=== PATIENT | female | born 1950 | race Caucasian/White ===

== ENCOUNTER → 2019-06-21 09:31 | Outpatient (BNVA) | payer MEDICARE, MEDICAID, SELFPAY | PROVIDERS: Visit Provider Nurse Practitioner Family | DX: E11.8 Type 2 diabetes mellitus with unspecified complications (principal) | CPT/HCPCS: 80053; 80061; 83036; 85025 ==

== ENCOUNTER → 2019-06-22 08:45 | Outpatient (BNVA) | payer MEDICARE, MEDICAID, SELFPAY | PROVIDERS: Visit Provider Nurse Practitioner Family | DX: E11.8 Type 2 diabetes mellitus with unspecified complications (principal); E83.52 Hypercalcemia | CPT/HCPCS: 82306; 82310; 83970 ==

== ENCOUNTER → 2019-07-25 13:17 | Outpatient (BNVA) | payer MEDICARE, MEDICAID, SELFPAY | PROVIDERS: PCP Nurse Practitioner Family; Visit Provider Nurse Practitioner Family | DX: E83.52 Hypercalcemia (principal) | CPT/HCPCS: 82340 ==

== ENCOUNTER 2019-10-03 14:01 | Outpatient (CLI) | payer MEDICARE, MEDICAID, SELFPAY ==
--- NOTE | 2019-10-03 14:15 | XR_ITS ---
WS: [id number] SCREENING DEXA SCAN [employer] CLINICAL INFORMATION: elevated serum calcium COMPARISON: 5 14,018. FINDINGS: Lumbar scoliosis. The L1-L4 bone mineral density measures 1.269 g/cm2. This corresponds to a T score score of 0.7 and Z score of 1.6. Left femoral neck bone mineral density measures 0.812 g/cm2. This corresponds to a T score of -1.6 an d Z score of -0.7. Right femoral neck bone mineral density measures 0.795 g/cm2. This corresponds to a T score -1.7of an d Z score of -0.8. Mean femoral neck bone mineral density measures 0.804 g/cm2. This corresponds to a T score of -1.6 an d Z score of -0.8. XR/XR DEXA axial skeleton* [id number] IMPRESSION: Osteopenia Patient's FRAX calculated 10 year probability for major osteoporotic fracture i s 18.5 % and osteoporotic hip fracture is 6.3%.
== END 2019-10-03 14:02 | disposition home or self-care (01) ==
LOC: RADWPI 14:07
PROVIDERS: Family Provider Nurse Practitioner Family; PCP Nurse Practitioner Family; Visit Provider Nurse Practitioner Family
DX: E83.52 Hypercalcemia (principal); M85.89 Other specified disorders of bone density and structure, multiple sites
CPT/HCPCS: 77080

== ENCOUNTER → 2019-12-20 11:18 | Outpatient (BNVA) | payer MEDICARE, MEDICAID, SELFPAY | PROVIDERS: Family Provider Nurse Practitioner Family; PCP Nurse Practitioner Family; Visit Provider Nurse Practitioner Family | DX: E03.9 Hypothyroidism, unspecified (principal); E11.9 Type 2 diabetes mellitus without complications; E55.9 Vitamin D deficiency, unspecified | CPT/HCPCS: 80053; 80061; 82306; 83036; 84443; 85025 ==

== ENCOUNTER → 2019-12-23 08:59 | Outpatient (BNVA) | payer MEDICARE, MEDICAID, SELFPAY | PROVIDERS: Family Provider Nurse Practitioner Family; PCP Nurse Practitioner Family; Visit Provider Nurse Practitioner Family | DX: E11.8 Type 2 diabetes mellitus with unspecified complications (principal) | CPT/HCPCS: 82043; 85025 ==

== ENCOUNTER 2020-01-02 08:42 | Outpatient (CLI) | payer MEDICARE, MEDICAID, SELFPAY ==
[2020-01-02] MEDS: iohexol 300 mg/mL 100 mL Btl IV (09:36)
--- NOTE | 2020-01-02 10:30 | CT_ITS ---
WS: [id number] CT scan of the abdomen and pelvis with IV contrast. Additional two-dimensional coronal and sagittal reconstruction was performed. 01/02/2020 Clinical Data: abd pain Comparison: None. DLP: 1155.[address] scans at [facility] use at least one of these dose optimization techniques: automat ed exposure control; mA and/or kV adjustment per patient size (includes targeted exams where dose is matched to clinical indication); or iterative reconstruction. Findings: The lower lungs show no nodules, masses or effusions. The liver, spleen, adrenal glands and pancreas are normal. The gallbladder is absent and there are c lips in the gallbladder fossa from cholecystectomy. The kidneys show equal bilateral contrast excretion with no cyst or masses. The abdominal aorta is normal in size with minimal calcification in the wall. A small fat-containing umbilical hernia is present.. No appendicitis or diverticulitis is seen. The stomach, small bowel and colon show no abnormalities. The bladder is unremarkable. The uterus is absent. No inguinal hernia is seen. Lumbar spine shows osteoarthritis, degenerative disc disease and a levoscoliosis. CT/CT abdomen pelvis w con* [id number] Impression: 1. Negative for acute intra-abdominal or pelvic abnormalities. 2. Cholecystectomy and hysterectomy.
== END 2020-01-02 08:43 | disposition home or self-care (01) ==
LOC: RADWPI 08:50
PROVIDERS: Family Provider Nurse Practitioner Family; PCP Nurse Practitioner Family; Visit Provider Nurse Practitioner Family
DX: R10.9 Unspecified abdominal pain (principal); Z90.49 Acquired absence of other specified parts of digestive tract; Z90.710 Acquired absence of both cervix and uterus
CPT/HCPCS: 74177; Q9967

== ENCOUNTER → 2020-01-06 08:28 | Outpatient (BNVA) | payer MEDICARE, MEDICAID, SELFPAY | PROVIDERS: Family Provider Nurse Practitioner Family; PCP Nurse Practitioner Family; Referring Provider Nurse Practitioner Family; Visit Provider Anesthesiology Pain Medicine | DX: M47.816 Spondylosis without myelopathy or radiculopathy, lumbar region (principal); M54.9 Dorsalgia, unspecified; Z79.891 Long term (current) use of opiate analgesic | CPT/HCPCS: 99204 ==

== ENCOUNTER → 2020-01-09 13:41 | Outpatient (BNVA) | payer MEDICARE, MEDICAID, SELFPAY | PROVIDERS: Family Provider Nurse Practitioner Family; PCP Nurse Practitioner Family; Visit Provider Anesthesiology Pain Medicine | DX: M47.816 Spondylosis without myelopathy or radiculopathy, lumbar region (principal); M54.9 Dorsalgia, unspecified; Z79.891 Long term (current) use of opiate analgesic | CPT/HCPCS: 64493; 64494; 64495; J3490 ==

== ENCOUNTER 2020-01-18 06:00 | Outpatient (RCR) | payer MEDICARE, MEDICAID, SELFPAY | END 2020-01-28 23:59 | disposition home or self-care (01) | LOC: APT 06:00 | PROVIDERS: PCP Nurse Practitioner Family; Referring Provider Anesthesiology Pain Medicine; Visit Provider Anesthesiology Pain Medicine | DX: M47.816 Spondylosis without myelopathy or radiculopathy, lumbar region (principal) | CPT/HCPCS: 97110; 97161 ==

== ENCOUNTER → 2020-01-19 10:43 | Outpatient (BNVA) | payer MEDICARE, MEDICAID, SELFPAY | PROVIDERS: Family Provider Nurse Practitioner Family; PCP Nurse Practitioner Family; Visit Provider Internal Medicine | DX: Z11.59 Encounter for screening for other viral diseases (principal); Z20.828 Contact with and (suspected) exposure to other viral communicable diseases | CPT/HCPCS: 87635 ==

== ENCOUNTER → 2020-01-23 09:34 | Outpatient (BNVA) | payer MEDICARE, MEDICAID, SELFPAY | PROVIDERS: Family Provider Nurse Practitioner Family; PCP Nurse Practitioner Family; Visit Provider Anesthesiology Pain Medicine | DX: Z01.812 Encounter for preprocedural laboratory examination (principal); G89.29 Other chronic pain; J06.9 Acute upper respiratory infection, unspecified; M51.16 Intervertebral disc disorders with radiculopathy, lumbar region; Z20.828 Contact with and (suspected) exposure to other viral communicable diseases; M47.816 Spondylosis without myelopathy or radiculopathy, lumbar region; M48.061 Spinal stenosis, lumbar region without neurogenic claudication; M54.9 Dorsalgia, unspecified; Z79.891 Long term (current) use of opiate analgesic | CPT/HCPCS: 87635; 99213 ==

== ENCOUNTER 2020-01-27 08:04 | Day surgery (SDC) | payer MEDICARE, MEDICAID, SELFPAY ==
[2020-01-23 10:51] VITALS: BMI 36.0
[2020-01-27 08:14] VITALS: BP 160/105; PULSE 81; RESP 18; TEMP 36.7; O2SAT 94
[2020-01-27 08:36] LABS: Glucose Point of Care 125 mg/dL (70-110)
[2020-01-27] MEDS: sodium chloride 0.9% 1,000 ML 30 ML IV (08:38)
--- NOTE | 2020-01-27 08:40 | ANES.PREANE2 ---
Pre-Anesthetic Assessment Pre-Anesthetic Assessment: Height/Weight: Height 1.63 m Weight 95.254 kg Temp Pulse Resp BP Pulse Ox 98.0 F 81 18 160/105 94 01/27/20 08:14 01/27/20 08:14 01/27/20 08:14 01/27/20 08:14 01/27/20 08:14 Preop Diagnosis: history of colon cancer Proposed Procedure: Operation Date: 01/27/20 09:00 Proposed Procedures p Colonoscopy 22184 Z85.038(Not Applicable) - Luis Alfredo Obrien MD Familial anesthetic complications: None Was Beta Giovanny taken within 24 hours: N/A Last intake: Intake Last Liquid Date 01/26/20 Last Liquid Time 19:30 Last Solid Date 01/25/20 Social: Social History: No alcohol and No tobacco Exam: Pre-Anes Outpt Exam: alert, oriented x 3, clear to auscultation bilaterally and regular rate & rhythm Airway: Cervical ROM: WNL MP: 3 Dentition: Other (multiple missing teeth) CV/HEM: CV/HEM: HTN GI: GI: GERD Comments: hx colon cancer Metabolic: Metabolic: DM, Hyperlipidemia and Thyroid Musc/skel: Musc/skel: Lower Back Pain Anesthetic Plan: ASA status: 3 Anesthesia: MAC Risk of > 500 ml blood loss (7ml/kg in children): No Meds/Allergies Current Medications: Current Medications Generic Name Dose Route Start Last Admin Trade Name Freq PRN Reason Stop Dose Admin Sodium Chloride 1,000 mls @ 30 ml s/hr 01/27/20 08:15 01/27/20 08:38 Sodium Chloride 0.9% IV 01/28/20 08:14 30 mls/hr .Q24H KAREN Administration PFSH Anesthesia PFSH: Medical History (Updated 01/23/20 @ 10:07 by Fermin Lr MD) Acquired deformity of left foot Chronic GERD DDD (degenerative disc disease), lumbar Depression Diabetes mellitus type 2 with complications Essential (primary) hypertension History of colon cancer Hypothyroidism Mixed hyperlipidemia Osteoarthritis of right knee Peripheral vascular disease Vitamin D insufficiency Surgical History History of cholecystectomy History of hysterectomy Family History Family/Other Unknown family medical history Social History Smoking and tobacco status: never smoked Alcohol intake: never Caregiver/support person: Yes (sister) Lives independently: No (siter) Household members: family Marital status: Single Current occupational status: disabled History of recent travel: No Current gender identity: Female Data Anesthesia Other Labs: Laboratory Results - last 48 hr 01/27/20 08:32 POC Glucose 125 Cardiac Studies: No Data to Display
--- NOTE | 2020-01-27 09:02 | W.PM.OPSUD ---
Surgery/Procedure H&P Update DATE OF PROCEDURE: January 27, 2020 DATE H&P PERFORMED: 01/10/20 PREOP DIAGNOSIS: history of colon cancer PLANNED PROCEDURE: Operation Date: 01/27/20 09:00 Proposed Procedures p Colonoscopy 78272 Z85.038(Not Applicable) - Luis Alfredo Obrien MD
[2020-01-27 09:29] VITALS: BP 149/93; PULSE 87; RESP 18; TEMP 36.1; O2SAT 94
--- NOTE | 2020-01-27 09:30 | ANE.PACU2 ---
Inpatient post-anesthesia follow up: Airway intact: Yes Vital signs: Temperature 98.0 F Pulse Rate 81 Respiratory Rate 18 Blood Pressure 160/105 Pulse Oximetry 94 Oxygen Delivery Me thod Room Air Oxygen Flow Rate Fraction of Inspir ed Oxygen Hydration adequate: Yes Nausea and vomiting: No Pain level: 1 Mental status: Baseline
[2020-01-27 09:45] VITALS: BP 164/89; PULSE 68; RESP 18; O2SAT 94
== END 2020-01-27 10:10 | disposition home or self-care (01) ==
PROVIDERS: PCP Nurse Practitioner Family; Visit Provider Internal Medicine
PROC: 0DJD8ZZ Inspection of Lower Intestinal Tract, Via Natural or Artificial Opening Endoscopic (ICD-10-PCS; CPT 45378; principal; 2020-01-27 09:00)
DX: Z85.038 Personal history of other malignant neoplasm of large intestine (principal); I10 Essential (primary) hypertension; E11.9 Type 2 diabetes mellitus without complications; K21.9 Gastro-esophageal reflux disease without esophagitis; E03.9 Hypothyroidism, unspecified; E78.2 Mixed hyperlipidemia; M17.11 Unilateral primary osteoarthritis, right knee; E55.9 Vitamin D deficiency, unspecified
CPT/HCPCS: 12345; 36416; 82962; G0121; J2704; J7030

== ENCOUNTER → 2020-01-30 13:47 | Outpatient (BNVA) | payer MEDICARE, MEDICAID, SELFPAY | PROVIDERS: Family Provider Nurse Practitioner Family; PCP Nurse Practitioner Family; Visit Provider Anesthesiology Pain Medicine | DX: M47.816 Spondylosis without myelopathy or radiculopathy, lumbar region (principal); M54.9 Dorsalgia, unspecified | CPT/HCPCS: 64635; 64636; J1030 ==

== ENCOUNTER 2020-02-06 12:33 | Outpatient (CLI) | payer MEDICARE, MEDICAID, SELFPAY ==
--- NOTE | 2020-02-06 13:30 | MM_ITS ---
WS: [id number] BILATERAL DIGITAL SCREENING MAMMOGRAPHY WITH CAD CLINICAL INFORMATION: screening HISTORY: Screening mammogram. No current complaints. COMPARISON: TECHNIQUE: Bilateral CC and MLO views. FINDINGS: Scattered fibroglandular densities bilaterally. No suspicious focal mass, asymmetry, calcifications, or architectural distortion. No evidence of malignancy. Punctate and lucent centered calcifications. Stable tiny punctate calcifications. Stable asymmetric breast tissue upper outer right breast. MM/[place] [id number] IMPRESSION: BI-RADS: 2-Benign FOLLOW UP: 1 Year Follow-up Recommend return to annual screening mammography.
== END 2020-02-06 12:34 | disposition home or self-care (01) ==
LOC: RADSHAW 12:39
PROVIDERS: PCP Nurse Practitioner Family; Visit Provider Nurse Practitioner Family
DX: Z12.31 Encounter for screening mammogram for malignant neoplasm of breast (principal)
CPT/HCPCS: 77067

== ENCOUNTER → 2020-02-14 13:26 | Outpatient (BNVA) | payer MEDICARE, MEDICAID, SELFPAY | PROVIDERS: PCP Nurse Practitioner Family; Visit Provider Anesthesiology Pain Medicine | DX: M47.816 Spondylosis without myelopathy or radiculopathy, lumbar region (principal); M54.9 Dorsalgia, unspecified | CPT/HCPCS: 64635; 64636; J1030 ==

== ENCOUNTER → 2020-03-02 11:02 | Outpatient (BNVA) | payer MEDICARE, MEDICAID, SELFPAY | PROVIDERS: PCP Nurse Practitioner Family; Visit Provider Anesthesiology Pain Medicine | DX: M51.16 Intervertebral disc disorders with radiculopathy, lumbar region (principal); M47.816 Spondylosis without myelopathy or radiculopathy, lumbar region; M48.061 Spinal stenosis, lumbar region without neurogenic claudication; M54.9 Dorsalgia, unspecified; Z79.1 Long term (current) use of non-steroidal anti-inflammatories (NSAID); Z51.81 Encounter for therapeutic drug level monitoring | CPT/HCPCS: 36415; 80048; 99213; 99214 ==

== ENCOUNTER 2020-03-02 12:39 | Outpatient (CLI) | payer MEDICARE, MEDICAID, SELFPAY ==
[2020-03-02 13:37] LABS: Anion Gap 13.1 (5-19); Blood Urea Nitrogen 11 mg/dL (8-23); Calcium 11.1 mg/dL (8.5-10.5); Carbon Dioxide 30 mmol/L (22-29); Chloride 99 mmol/L (98-107); Glomerular Filtration Rate 70.9 mL/min (90-130); Glucose 95 mg/dL (65-115); Osmolality Calculated 285 mOsm/kg (285-295); Potassium 4.1 mmol/L (3.5-5.1); Sodium 138 mmol/L (136-145)
== END 2020-03-02 12:40 | disposition home or self-care (01) ==
PROVIDERS: PCP Nurse Practitioner Family; Visit Provider Anesthesiology Pain Medicine
DX: Z51.81 Encounter for therapeutic drug level monitoring (principal); Z79.1 Long term (current) use of non-steroidal anti-inflammatories (NSAID)
CPT/HCPCS: 36415; 80048

== ENCOUNTER → 2020-03-26 10:59 | Outpatient (BNVA) | payer MEDICARE, MEDICAID, SELFPAY | PROVIDERS: PCP Nurse Practitioner Family; Visit Provider Anesthesiology Pain Medicine | DX: M54.9 Dorsalgia, unspecified (principal); M47.816 Spondylosis without myelopathy or radiculopathy, lumbar region; M51.16 Intervertebral disc disorders with radiculopathy, lumbar region; M48.061 Spinal stenosis, lumbar region without neurogenic claudication | CPT/HCPCS: 99213 ==

== ENCOUNTER → 2020-04-23 09:42 | Outpatient (BNVA) | payer MEDICARE, MEDICAID, SELFPAY | PROVIDERS: PCP Nurse Practitioner Family; Visit Provider Anesthesiology Pain Medicine | DX: M51.16 Intervertebral disc disorders with radiculopathy, lumbar region (principal); M54.9 Dorsalgia, unspecified; M47.816 Spondylosis without myelopathy or radiculopathy, lumbar region; M48.061 Spinal stenosis, lumbar region without neurogenic claudication; M25.561 Pain in right knee; M25.562 Pain in left knee; Z79.891 Long term (current) use of opiate analgesic | CPT/HCPCS: 99214 ==

== ENCOUNTER → 2020-04-30 13:04 | Outpatient (BNVA) | payer MEDICARE, MEDICAID, SELFPAY | PROVIDERS: PCP Nurse Practitioner Family; Visit Provider Anesthesiology Pain Medicine | DX: M51.16 Intervertebral disc disorders with radiculopathy, lumbar region (principal); M54.9 Dorsalgia, unspecified | CPT/HCPCS: 64483; 64484; J1100; J3490 ==

== ENCOUNTER → 2020-05-21 09:29 | Outpatient (BNVA) | payer MEDICARE, MEDICAID, SELFPAY | PROVIDERS: PCP Nurse Practitioner Family; Visit Provider Anesthesiology Pain Medicine | DX: M48.061 Spinal stenosis, lumbar region without neurogenic claudication (principal); M51.16 Intervertebral disc disorders with radiculopathy, lumbar region; M25.561 Pain in right knee; M54.9 Dorsalgia, unspecified; M47.816 Spondylosis without myelopathy or radiculopathy, lumbar region; Z79.899 Other long term (current) drug therapy; Z79.891 Long term (current) use of opiate analgesic | CPT/HCPCS: 99215 ==

== ENCOUNTER → 2020-05-25 12:25 | Outpatient (BNVA) | payer MEDICARE, MEDICAID, SELFPAY | PROVIDERS: PCP Nurse Practitioner Family; Visit Provider Nurse Practitioner Family | DX: E11.8 Type 2 diabetes mellitus with unspecified complications (principal); E03.9 Hypothyroidism, unspecified; E55.9 Vitamin D deficiency, unspecified; I10 Essential (primary) hypertension; K21.9 Gastro-esophageal reflux disease without esophagitis; F32.9 Major depressive disorder, single episode, unspecified; M25.561 Pain in right knee; G89.29 Other chronic pain; E78.2 Mixed hyperlipidemia | CPT/HCPCS: 80053; 80061; 82306; 83036; 84443; 85025 ==

== ENCOUNTER 2020-06-04 09:00 | Outpatient (CLI) | payer MEDICARE, MEDICAID, SELFPAY ==
--- NOTE | 2020-06-04 09:09 | MR_ITS ---
WS: [id number] MRI LUMBAR SPINE NONCONTRAST HISTORY: M48.061 - Spinal stenosis, lumbar region without neurogenic claudication COMPARISON: 10/08/2015 TECHNIQUE: Sagittal and axial multisequence imaging is submitted. Moderate cervical spondylitic disease. Disc or osteophyte encroachment C5-6 upon the cord. Moderate LEFT convex curvature of the lumbar spine. Asymmetric disc space narrowing and osteophytosis throughout the lumbar spine. Advanced degenerative changes within the disc from L2-3 through L4-5. No acute marrow edema. Conus terminates normally at L1-2 disc level. L1-L2: Diffuse asymmetric disc bulging with asymmetric ligamentum flavum and facet arthritis greatest on the LEFT. Mild progression since the prior study. Moderate bilateral facet joint arthritis with m oderate bilateral foraminal stenosis. Mild LEFT subarticular recess stenosis. L2-L3: Diffuse asymmetric disc bulging with osteophytosis. Ligamentum flavum and facet joint arthriti s. Moderate bilateral foraminal stenosis, LEFT greater than RIGHT with moderate LEFT subarticular rec ess stenosis. L3-L4: Diffuse annular disc bulging and osteophytic ridging with marked facet and ligamentum flavum h ypertrophy. Small amount of fluid in the facet joints bilaterally. Moderate central stenosis. Severe RIGHT subarticular and foraminal stenosis similar to the prior study. Mild LEFT foraminal narrowing. L4-L5: Diffuse annular disc bulging and osteophytic ridging with a central disc protrusion. Central p rotrusion is new. Mild central stenosis with severe RIGHT subarticular and foraminal stenosis and mod erate LEFT foraminal stenosis. L5-S1: Moderate facet joint arthritis. Osteophyte encroaches into the RIGHT lateral thecal sac at L5- S1. Mild bilateral foraminal stenosis. Extrarenal pelvis on the RIGHT. Mild atherosclerosis within the aorta. MR/MR lumbar spine wo con* [id number] IMPRESSION: 1. Overall there is been a mild to moderate progression of stenoses and facet arthritis throughout the lumbar spine. 2. Moderate central stenosis at L3-4 with severe RIGHT subarticular foraminal stenosis. 3. Moderate bilateral foraminal stenosis at L1-2. 4. Moderate bilateral foraminal stenosis at L2-3 with moderate LEFT subarticul ar recess stenosis. 5. Severe RIGHT subarticular foraminal stenosis at L4-5 and moderate on the LE FT.
--- NOTE | 2020-06-04 10:15 | XR_ITS ---
WS: [id number] RIGHT KNEE: 3 VIEW(S) TECHNIQUE: AP, oblique(s) and lateral. HISTORY: M25.561 - Pain in right knee COMPARISON: 11/29/2014 Severe narrowing of the medial and patellofemoral compartments. Bone upon bone with moderate-sized os teophytes in the medial joint line. Small defects along the cortical surface of the femoral condyle. No loose body identified. Mild narrowing of the lateral compartment. No joint effusion. Very mild bilateral lytic and sclerotic changes in the distal femoral diaphysis similar to prior stud ies. No periosteal reaction. 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 XR/XR knee RT 3V* [id number] IMPRESSION: 1. Severe medial and patellofemoral joint space arthritis with progression ove r multiple prior studies. 2. No joint effusion.
== END 2020-06-04 09:01 | disposition home or self-care (01) ==
PROVIDERS: PCP Nurse Practitioner Family; Visit Provider Anesthesiology Pain Medicine
DX: M48.061 Spinal stenosis, lumbar region without neurogenic claudication (principal); M13.861 Other specified arthritis, right knee; M13.88 Other specified arthritis, other site
CPT/HCPCS: 72148; 73562

== ENCOUNTER → 2020-06-18 10:11 | Outpatient (BNVA) | payer MEDICARE, MEDICAID, SELFPAY | PROVIDERS: PCP Nurse Practitioner Family; Visit Provider Anesthesiology Pain Medicine | DX: G89.29 Other chronic pain (principal); M51.16 Intervertebral disc disorders with radiculopathy, lumbar region; M47.816 Spondylosis without myelopathy or radiculopathy, lumbar region; M48.061 Spinal stenosis, lumbar region without neurogenic claudication; M54.9 Dorsalgia, unspecified; M25.561 Pain in right knee; Z79.899 Other long term (current) drug therapy; Z79.891 Long term (current) use of opiate analgesic | CPT/HCPCS: 99215 ==

== ENCOUNTER → 2020-07-16 10:38 | Outpatient (BNVA) | payer MEDICARE, MEDICAID, SELFPAY | PROVIDERS: PCP Nurse Practitioner Family; Visit Provider Anesthesiology Pain Medicine | DX: G89.29 Other chronic pain (principal); M54.9 Dorsalgia, unspecified; M47.816 Spondylosis without myelopathy or radiculopathy, lumbar region; M51.16 Intervertebral disc disorders with radiculopathy, lumbar region; M48.061 Spinal stenosis, lumbar region without neurogenic claudication; M25.561 Pain in right knee; Z79.891 Long term (current) use of opiate analgesic | CPT/HCPCS: 99214 ==

== ENCOUNTER → 2020-08-06 12:11 | Outpatient (BNVA) | payer MEDICARE, MEDICAID, SELFPAY | PROVIDERS: PCP Nurse Practitioner Family; Visit Provider Nurse Practitioner Family | DX: E11.8 Type 2 diabetes mellitus with unspecified complications (principal); M51.16 Intervertebral disc disorders with radiculopathy, lumbar region; Z79.899 Other long term (current) drug therapy; E78.2 Mixed hyperlipidemia | CPT/HCPCS: 80053; 80061; 83036; 85025 ==

== ENCOUNTER → 2020-11-05 11:56 | Outpatient (BNVA) | payer MEDICARE, MEDICAID, SELFPAY | PROVIDERS: PCP Nurse Practitioner Family; Visit Provider Nurse Practitioner Family | DX: E11.8 Type 2 diabetes mellitus with unspecified complications (principal); E55.9 Vitamin D deficiency, unspecified; M51.16 Intervertebral disc disorders with radiculopathy, lumbar region; E78.2 Mixed hyperlipidemia; F32.9 Major depressive disorder, single episode, unspecified; K21.9 Gastro-esophageal reflux disease without esophagitis; I10 Essential (primary) hypertension; Z79.899 Other long term (current) drug therapy; L20.9 Atopic dermatitis, unspecified | CPT/HCPCS: 80053; 80061; 82306; 83036; 84443; 85025 ==

== ENCOUNTER → 2021-01-24 15:13 | Outpatient (BNVA) | payer MEDICARE, MEDICAID, SELFPAY | PROVIDERS: PCP Nurse Practitioner Family; Visit Provider Nurse Practitioner Family | DX: M25.531 Pain in right wrist (principal); M25.532 Pain in left wrist; E11.8 Type 2 diabetes mellitus with unspecified complications; E03.9 Hypothyroidism, unspecified; W19.XXXA Unspecified fall, initial encounter | CPT/HCPCS: 73110; 80053; 80061; 83036; 84443; 85025 ==

== ENCOUNTER → 2021-01-25 11:01 | Outpatient (BNVA) | payer MEDICARE, MEDICAID, SELFPAY | PROVIDERS: PCP Nurse Practitioner Family; Visit Provider Nurse Practitioner Family | DX: E11.8 Type 2 diabetes mellitus with unspecified complications (principal) | CPT/HCPCS: 82043 ==

== ENCOUNTER 2021-02-07 08:13 | Outpatient (CLI) | payer MEDICARE, MEDICAID, SELFPAY ==
--- NOTE | 2021-02-07 08:30 | MM_ITS ---
WS: [id number] BILATERAL DIGITAL DIAGNOSTIC MAMMOGRAM MAMMOGRAPHY WITH CAD CLINICAL INFORMATION: N64.4 - Mastodynia COMPARISON: February 06, 2020 TECHNIQUE: Bilateral CC, MLO, and ML views. FINDINGS: Scattered fibroglandular densities bilaterally. Punctate and lucent centered calcifications. Long-ter m stability of the asymmetric density upper outer left breast. No suspicious focal mass, asymmetry, calcifications, or architectural distortion. Ultrasound is pendi ng. ULTRASOUND BREAST BILATERAL TECHNIQUE: Ultrasound bilateral breast focused area of concern. CLINICAL INFORMATION: N64.4 - Mastodynia FINDINGS: Ultrasound bilateral breasts. Ultrasound performed in the areas of patient directed concern bilateral ly. Ultrasound performed right breast at the 10 to 12:00 position and left breast 12 to 2:00 position . No suspicious underlying parenchymal abnormalities. No cystic or solid lesions. No lesions to targe t for biopsy. MM/[place] [id number] IMPRESSION: BI-RADS: 2-Benign FOLLOW UP: 1 Year Follow-up Recommend return to annual screening mammography.
--- NOTE | 2021-02-07 08:57 | US_ITS ---
WS: [id number] BILATERAL DIGITAL DIAGNOSTIC MAMMOGRAM MAMMOGRAPHY WITH CAD CLINICAL INFORMATION: N64.4 - Mastodynia COMPARISON: February 06, 2020 TECHNIQUE: Bilateral CC, MLO, and ML views. FINDINGS: Scattered fibroglandular densities bilaterally. Punctate and lucent centered calcifications. Long-ter m stability of the asymmetric density upper outer left breast. No suspicious focal mass, asymmetry, calcifications, or architectural distortion. Ultrasound is pendi ng. ULTRASOUND BREAST BILATERAL TECHNIQUE: Ultrasound bilateral breast focused area of concern. CLINICAL INFORMATION: N64.4 - Mastodynia FINDINGS: Ultrasound bilateral breasts. Ultrasound performed in the areas of patient directed concern bilateral ly. Ultrasound performed right breast at the 10 to 12:00 position and left breast 12 to 2:00 position . No suspicious underlying parenchymal abnormalities. No cystic or solid lesions. No lesions to targe t for biopsy. US/US breast BI limited* [id number] IMPRESSION: BI-RADS: 2-Benign FOLLOW UP: 1 Year Follow-up Recommend return to annual screening mammography.
== END 2021-02-07 08:14 | disposition home or self-care (01) ==
LOC: RADSHAW 08:17
PROVIDERS: PCP Nurse Practitioner Family; Visit Provider Nurse Practitioner Family
DX: N64.4 Mastodynia (principal)
CPT/HCPCS: 76642; 77066

== ENCOUNTER → 2021-02-28 17:08 | Outpatient (BNVA) | payer MEDICARE, MEDICAID, SELFPAY | PROVIDERS: PCP Nurse Practitioner Family; Visit Provider Nurse Practitioner Family | DX: Z20.822 Contact with and (suspected) exposure to COVID-19 (principal); J40 Bronchitis, not specified as acute or chronic | CPT/HCPCS: 87635 ==

== ENCOUNTER → 2021-06-13 12:02 | Outpatient (BNVA) | payer MEDICARE, MEDICAID, SELFPAY | PROVIDERS: PCP Nurse Practitioner Family; Visit Provider Nurse Practitioner Family | DX: E11.8 Type 2 diabetes mellitus with unspecified complications (principal); E55.9 Vitamin D deficiency, unspecified; E03.9 Hypothyroidism, unspecified; M51.16 Intervertebral disc disorders with radiculopathy, lumbar region; F32.9 Major depressive disorder, single episode, unspecified; E78.2 Mixed hyperlipidemia; M51.36 Other intervertebral disc degeneration, lumbar region; I10 Essential (primary) hypertension; S21.001A Unspecified open wound of right breast, initial encounter; K21.9 Gastro-esophageal reflux disease without esophagitis | CPT/HCPCS: 80053; 80061; 82306; 83036; 84443; 85025 ==

== ENCOUNTER → 2021-07-15 14:50 | Outpatient (BNVA) | payer MEDICARE, MEDICAID, SELFPAY | PROVIDERS: PCP Nurse Practitioner Family; Visit Provider Family Medicine | DX: N39.0 Urinary tract infection, site not specified (principal) | CPT/HCPCS: 81003 ==

== ENCOUNTER → 2021-11-04 13:09 | Outpatient (BNVA) | payer MEDICARE, MEDICAID, SELFPAY | PROVIDERS: PCP Nurse Practitioner Family; Visit Provider Nurse Practitioner Family | DX: R22.9 Localized swelling, mass and lump, unspecified (principal); E03.9 Hypothyroidism, unspecified; E78.2 Mixed hyperlipidemia; E11.8 Type 2 diabetes mellitus with unspecified complications; I10 Essential (primary) hypertension; E55.9 Vitamin D deficiency, unspecified; M79.603 Pain in arm, unspecified; M51.36 Other intervertebral disc degeneration, lumbar region | CPT/HCPCS: 80053; 80061; 82306; 83036; 84443 ==

== ENCOUNTER 2022-02-19 13:18 | Outpatient (CLI) | payer MEDICARE, MEDICAID, SELFPAY ==
--- NOTE | 2022-02-19 13:27 | MM_ITS ---
WS: [id number] BILATERAL 3D TOMOSYNTHESIS DIGITAL SCREENING MAMMOGRAPHY WITH CAD CLINICAL INFORMATION: SCREENING HISTORY: Screening mammogram. Bilateral breast pain and soreness. COMPARISON: February 07, 2021 TECHNIQUE: Bilateral CC and MLO views. FINDINGS: Scattered fibroglandular densities bilaterally. No suspicious focal mass, asymmetry, calcifications, or architectural distortion. No evidence of malignancy. Punctate and lucent centered calcifications.L nickolas-term stability of the asymmetric density upper outer left breast and upper outer RIGHT breast karen r the chest wall. MM/[place] [id number] IMPRESSION: BI-RADS: 2-Benign FOLLOW UP: 1 Year Follow-up Recommend return to annual screening mammography.
== END 2022-02-19 13:19 | disposition home or self-care (01) ==
LOC: RAD 13:18
PROVIDERS: PCP Nurse Practitioner Family; Visit Provider Nurse Practitioner Family
DX: Z12.31 Encounter for screening mammogram for malignant neoplasm of breast (principal)
CPT/HCPCS: 77063; 77067

== ENCOUNTER → 2022-02-26 17:00 | Outpatient (BNVA) | payer MEDICARE, MEDICAID, SELFPAY | PROVIDERS: PCP Nurse Practitioner Family; Visit Provider Nurse Practitioner Family | DX: E11.8 Type 2 diabetes mellitus with unspecified complications (principal); E55.9 Vitamin D deficiency, unspecified; R29.6 Repeated falls; M51.16 Intervertebral disc disorders with radiculopathy, lumbar region | CPT/HCPCS: 73562; 80053; 80061; 81003; 82306; 82607; 83036; 83735; 84443; 85025 ==

== ENCOUNTER 2022-03-07 08:06 | Outpatient (CLI) | payer MEDICARE, MEDICAID, SELFPAY ==
--- NOTE | 2022-03-07 08:15 | US_ITS ---
WS: [id number] Bilateral subcutaneous ultrasound of the arms and forearms, 03/07/2022 Clinical Data: movable lumps bilateral upper extremities Comparison: None. Findings: There is a palpable nodule on the left forearm which measures 0.59 x 1.40 x 2.05 cm that shows a unif orm echotexture. The border is well-defined. No calcifications are associated with this soft tissue n odule. There is a palpable nodule of the left arm which measures 0.42 x 0.66 x 0.93 cm. It has uniform echot exture with a well-defined border. There are no calcifications within this nodule. The right arm and right forearm show no subcutaneous nodules. There are no subcutaneous cysts or mass es on the right. US/US soft tissue/extremity [id number] Impression: 1. Palpable nodules in the left forearm and left arm which show uniform echotex ture and smooth border most likely lipomas. 2. Negative for subcutaneous nodules of the right arm and right forearm.
== END 2022-03-07 08:07 | disposition home or self-care (01) ==
LOC: RAD 08:07
PROVIDERS: PCP Nurse Practitioner Family; Visit Provider Nurse Practitioner Family
DX: R22.9 Localized swelling, mass and lump, unspecified (principal)
CPT/HCPCS: 76882

== ENCOUNTER 2022-03-10 06:00 | Outpatient (RCR) | payer MEDICARE, MEDICAID, SELFPAY | END 2022-03-29 23:59 | disposition home or self-care (01) | LOC: APT 06:00 | PROVIDERS: PCP Nurse Practitioner Family; Visit Provider Nurse Practitioner Family | DX: R29.6 Repeated falls (principal) | CPT/HCPCS: 97110; 97163 ==

== ENCOUNTER 2022-03-30 06:00 | Outpatient (RCR) | payer MEDICARE, MEDICAID, SELFPAY | END 2022-04-29 23:59 | disposition home or self-care (01) | LOC: APT 06:00 | PROVIDERS: PCP Nurse Practitioner Family; Visit Provider Nurse Practitioner Family | DX: R29.6 Repeated falls (principal) | CPT/HCPCS: 97110; 97112; 97116; 97530 ==

== ENCOUNTER → 2022-04-03 09:16 | Outpatient (BNVA) | payer MEDICARE, MEDICAID, SELFPAY | PROVIDERS: PCP Nurse Practitioner Family; Visit Provider Nurse Practitioner Family | DX: R79.0 Abnormal level of blood mineral (principal) | CPT/HCPCS: 83735 ==

== ENCOUNTER → 2022-04-04 08:32 | Outpatient (BNVA) | payer MEDICARE, MEDICAID, SELFPAY | PROVIDERS: PCP Nurse Practitioner Family; Visit Provider Surgery | DX: D17.22 Benign lipomatous neoplasm of skin and subcutaneous tissue of left arm (principal); D17.21 Benign lipomatous neoplasm of skin and subcutaneous tissue of right arm | CPT/HCPCS: 99203 ==

== ENCOUNTER 2022-04-30 06:00 | Outpatient (RCR) | payer MEDICARE, MEDICAID, SELFPAY | END 2022-05-27 23:59 | disposition home or self-care (01) | LOC: APT 06:00 | PROVIDERS: PCP Nurse Practitioner Family; Visit Provider Nurse Practitioner Family | DX: R29.6 Repeated falls (principal) | CPT/HCPCS: 97110 ==

== ENCOUNTER → 2022-05-20 10:06 | Outpatient (BNVA) | payer MEDICARE, MEDICAID, SELFPAY | PROVIDERS: PCP Nurse Practitioner Family; Visit Provider Nurse Practitioner Family | DX: R79.0 Abnormal level of blood mineral (principal); E78.2 Mixed hyperlipidemia; M51.16 Intervertebral disc disorders with radiculopathy, lumbar region | CPT/HCPCS: 83735 ==

== ENCOUNTER 2022-08-19 20:00 | Outpatient (CLI) | payer MEDICARE, MEDICAID, SELFPAY | END 2022-08-20 06:02 | disposition home or self-care (01) | LOC: SLEEP 08-26 15:26 | PROVIDERS: PCP Nurse Practitioner Family; Visit Provider Anesthesiology Pain Medicine | DX: G47.10 Hypersomnia, unspecified (principal) | CPT/HCPCS: 95810 ==

== ENCOUNTER → 2023-02-27 10:29 | Outpatient (BNVA) | payer MEDICARE, MEDICAID, SELFPAY | PROVIDERS: PCP Nurse Practitioner Family; Visit Provider Nurse Practitioner Family | DX: N89.8 Other specified noninflammatory disorders of vagina (principal); L30.9 Dermatitis, unspecified | CPT/HCPCS: 81003 ==

== ENCOUNTER 2023-03-10 09:58 | Outpatient (CLI) | payer MEDICARE, MEDICAID, SELFPAY ==
--- NOTE | 2023-03-10 10:30 | MM_ITS ---
WS: [id number] VIEWS: MLO and CC views both breasts. 3D digital tomosynthesis is also included in this exam. Comparison made with prior exam of 09/22/2007, 09/22/2008, 06/04/2011, 07/06/2012, 07/19/2013, 07/20/2014, , 02/06/2020, 02/07/2021, 02/19/2022.. Findings: There was no sign of mass, architectural distortion or suspicious calcification in either breast. The re are scattered areas of fibroglandular density Impression: MM/[place] [id number] BI-RADS: 1-Negative FOLLOW-UP: 1 Year Follow-up This mammogram was also analyzed by the Computer Aided Detection System R2 [employer].
== END 2023-03-10 09:59 | disposition home or self-care (01) ==
LOC: MOBLMAM 10:01
PROVIDERS: PCP Nurse Practitioner Family; Visit Provider Nurse Practitioner Family
DX: Z12.31 Encounter for screening mammogram for malignant neoplasm of breast (principal)
CPT/HCPCS: 77063; 77067

== ENCOUNTER → 2023-04-17 12:27 | Outpatient (BNVA) | payer MEDICARE, MEDICAID, SELFPAY | PROVIDERS: PCP Nurse Practitioner Family; Visit Provider Nurse Practitioner Family | DX: I10 Essential (primary) hypertension (principal); E11.8 Type 2 diabetes mellitus with unspecified complications; E78.2 Mixed hyperlipidemia; E03.9 Hypothyroidism, unspecified; E55.9 Vitamin D deficiency, unspecified | CPT/HCPCS: 80053; 80061; 82306; 83036; 84443; 85025 ==

== ENCOUNTER → 2023-06-17 16:00 | Outpatient (BNVA) | payer MEDICARE, MEDICAID, SELFPAY | PROVIDERS: PCP Nurse Practitioner Family; Visit Provider Family Medicine | DX: R10.9 Unspecified abdominal pain (principal) | CPT/HCPCS: 74018 ==

== ENCOUNTER → 2023-07-21 10:30 | Outpatient (BNVA) | payer MEDICARE, MEDICAID, SELFPAY | PROVIDERS: PCP Nurse Practitioner Family; Visit Provider Nurse Practitioner Family | DX: E55.9 Vitamin D deficiency, unspecified (principal); E11.8 Type 2 diabetes mellitus with unspecified complications; E03.9 Hypothyroidism, unspecified; I10 Essential (primary) hypertension; Z79.899 Other long term (current) drug therapy | CPT/HCPCS: 80053; 80061; 82043; 82306; 83036; 84443; 85025 ==

== ENCOUNTER 2023-08-05 06:00 | Outpatient (RCR) | payer MEDICARE, MEDICAID, SELFPAY | END 2023-08-28 23:59 | disposition home or self-care (01) | LOC: APT 06:00 | PROVIDERS: PCP Nurse Practitioner Family; Visit Provider Nurse Practitioner Family | DX: M25.511 Pain in right shoulder (principal); M25.512 Pain in left shoulder | CPT/HCPCS: 97110; 97140; 97163; 97530 ==

== ENCOUNTER 2023-08-29 06:00 | Outpatient (RCR) | payer MEDICARE, MEDICAID, SELFPAY | END 2023-09-27 23:59 | disposition home or self-care (01) | LOC: APT 06:00 | PROVIDERS: PCP Nurse Practitioner Family; Visit Provider Nurse Practitioner Family | DX: M25.511 Pain in right shoulder (principal); M25.512 Pain in left shoulder | CPT/HCPCS: 97110; 97530 ==

== ENCOUNTER → 2024-01-20 10:51 | Outpatient (BNVA) | payer MEDICARE, MEDICAID, SELFPAY | PROVIDERS: PCP Nurse Practitioner Family; Visit Provider Nurse Practitioner Family | DX: E11.65 Type 2 diabetes mellitus with hyperglycemia (principal); E11.8 Type 2 diabetes mellitus with unspecified complications | CPT/HCPCS: 80053; 80061; 83036; 84443; 85025 ==

== ENCOUNTER 2024-03-17 09:04 | Outpatient (CLI) | payer MEDICARE, MEDICAID, SELFPAY ==
--- NOTE | 2024-03-17 09:20 | MM_ITS ---
WS: [id number] BILATERAL SCREENING DIGITAL TOMOSYNTHESIS MAMMOGRAM WITH CAD HISTORY: SCREENING COMPARISON: 03/10/2023, 02/19/2022, 02/07/2021 Bilateral CC and MLO views with tomosynthesis and synthetic mammography submitted. Computer aided det ection analyzed. Breast composition: The breasts are almost entirely fatty. No suspicious masses, microcalcifications or architectural distortion. Numerous benign scattered calcifications within each breast. MM/MM scr tomosynthesis [id number] IMPRESSION: BI-RADS: 2 - Benign. FOLLOW UP: 1 Year Follow-up
== END 2024-03-17 09:05 | disposition home or self-care (01) ==
LOC: MOBLMAM 09:05
PROVIDERS: PCP Nurse Practitioner Family; Visit Provider Nurse Practitioner Family
DX: Z12.31 Encounter for screening mammogram for malignant neoplasm of breast (principal); R92.313 Mammographic fatty tissue density, bilateral breasts; R92.1 Mammographic calcification found on diagnostic imaging of breast
CPT/HCPCS: 77063; 77067

== ENCOUNTER → 2024-07-25 15:00 | Outpatient (BNVA) | payer MEDICARE, MEDICAID, SELFPAY | PROVIDERS: PCP Nurse Practitioner Family; Visit Provider Nurse Practitioner Family | DX: E55.9 Vitamin D deficiency, unspecified (principal); E11.65 Type 2 diabetes mellitus with hyperglycemia; E11.8 Type 2 diabetes mellitus with unspecified complications | CPT/HCPCS: 80053; 80061; 82306; 82607; 83036; 84443; 85025 ==

== ENCOUNTER → 2024-08-11 10:20 | Outpatient (BNVA) | payer MEDICARE, MEDICAID, SELFPAY | PROVIDERS: PCP Nurse Practitioner Family; Visit Provider Nurse Practitioner Family | DX: E83.52 Hypercalcemia (principal) | CPT/HCPCS: 82310; 83970 ==

== ENCOUNTER → 2024-09-23 09:33 | Outpatient (BNVA) | payer MEDICARE, MEDICAID, SELFPAY | PROVIDERS: PCP Nurse Practitioner Family; Visit Provider Nurse Practitioner | DX: M17.11 Unilateral primary osteoarthritis, right knee (principal); G89.29 Other chronic pain; Z46.89 Encounter for fitting and adjustment of other specified devices; M25.561 Pain in right knee | CPT/HCPCS: 73562 ==

== ENCOUNTER 2024-09-23 11:54 | Outpatient (CLI) | payer MEDICARE, MEDICAID, SELFPAY | END 2024-09-23 11:55 | disposition home or self-care (01) | LOC: SPT 11:55 | PROVIDERS: PCP Nurse Practitioner Family; Visit Provider Nurse Practitioner | DX: Z46.89 Encounter for fitting and adjustment of other specified devices (principal); M25.561 Pain in right knee | CPT/HCPCS: 20610; J1100; J2795; J3301; J9999; L1851 ==

== ENCOUNTER → 2024-12-23 10:22 | Outpatient (BNVA) | payer MEDICARE, MEDICAID, SELFPAY | PROVIDERS: PCP Nurse Practitioner Family; Visit Provider Nurse Practitioner | DX: M17.11 Unilateral primary osteoarthritis, right knee (principal) | CPT/HCPCS: 20610; 99213; J1100; J2795; J3301; J9999 ==

== ENCOUNTER → 2024-12-27 11:28 | Outpatient (BNVA) | payer MEDICARE, MEDICAID, SELFPAY | PROVIDERS: PCP Nurse Practitioner Family; Visit Provider Nurse Practitioner Family | DX: E55.9 Vitamin D deficiency, unspecified (principal); E11.8 Type 2 diabetes mellitus with unspecified complications; E11.65 Type 2 diabetes mellitus with hyperglycemia | CPT/HCPCS: 80053; 80061; 82306; 82310; 83036; 83970; 84443; 85025 ==

== ENCOUNTER 2025-01-04 10:58 | Outpatient (CLI) | payer MEDICARE, MEDICAID, SELFPAY ==
--- NOTE | 2025-01-04 11:15 | US_ITS ---
WS: [id number] ULTRASOUND SOFT TISSUES RIGHT axilla. HISTORY: R59.1 - Generalized enlarged lymph nodes COMPARISON: None available. TECHNIQUE: 2-D and color Doppler imaging is submitted. Ultrasound directed to the RIGHT axilla as directed by the patient. No mass identified. No lymphadenopathy. US/US soft tissue/extremity [id number] IMPRESSION: Negative soft tissue ultrasound RIGHT axilla.
== END 2025-01-04 10:59 | disposition home or self-care (01) ==
LOC: RAD 11:00
PROVIDERS: PCP Nurse Practitioner Family; Visit Provider Nurse Practitioner Family
DX: R59.1 Generalized enlarged lymph nodes (principal)
CPT/HCPCS: 76882

== ENCOUNTER → 2025-03-10 11:51 | Outpatient (BNVA) | payer MEDICARE, MEDICAID, SELFPAY | PROVIDERS: PCP Nurse Practitioner Family; Visit Provider Nurse Practitioner | DX: M17.11 Unilateral primary osteoarthritis, right knee (principal) | CPT/HCPCS: 20610; J7318 ==

== ENCOUNTER 2025-03-29 08:58 | Outpatient (CLI) | payer MEDICARE, MEDICAID, SELFPAY ==
--- NOTE | 2025-03-29 09:02 | MM_ITS ---
WS: [id number] BILATERAL SCREENING DIGITAL TOMOSYNTHESIS MAMMOGRAM WITH CAD HISTORY: SCREENING COMPARISON: 03/17/2024, 03/10/2023 Bilateral CC and MLO views with tomosynthesis and synthetic mammography submitted. Computer aided detection analyzed. Breast composition: There are scattered areas of fibroglandular density. No suspicious masses, microcalcifications or architectural distortion. Benign calcifications in each breast. MM/MM scr BI tomosynthesis [id number] IMPRESSION: BI-RADS: 2 - Benign. FOLLOW UP: 1 Year Follow-up
== END 2025-03-29 08:59 | disposition home or self-care (01) ==
PROVIDERS: PCP Nurse Practitioner Family; Visit Provider Nurse Practitioner Family
DX: Z12.31 Encounter for screening mammogram for malignant neoplasm of breast (principal); R92.323 Mammographic fibroglandular density, bilateral breasts; R92.1 Mammographic calcification found on diagnostic imaging of breast
CPT/HCPCS: 77063; 77067